=== PATIENT | male | born 1955 | race Hispanic/Latino ===

== ENCOUNTER 2018-08-12 07:10 | Day surgery (SDC) | payer OTHER ==
--- NOTE | 2018-08-12 11:28 | OP ---
DATE OF PROCEDURE: 08/12/2018 PROCEDURE: Colonoscopy with polypectomy. PREPROCEDURE DIAGNOSIS: Screening colonoscopy. ANESTHESIA: TIVA. POSTPROCEDURE DIAGNOSES: 1. A 3-to 5-mm sessile polyps in the transverse and descending colon, all submitted in one jar. 2. Diverticulosis coli, mild. RECOMMENDATIONS: Await histopathology. Repeat colonoscopy in 3 to 5 years depending on pathology results. PROCEDURE IN DETAIL: The patient was informed of the risks, benefits, and possible complications of endoscopy including perforation, reaction to medication, and aspiration, informed consent was obtained. Ret[employer] Press Operator was then performing the family members at the bedside. The patient was sedated in a comfortable fashion. Rectal exam was performed, which was normal. The endoscope was then advanced through the anal canal through the colon to the cecum, which was identified by the ileocecal valve and appendiceal orifice. The prep was good. We did use some irrigation to clear a little bit of debris in the left colon. Three polyps were found, two in the transverse, one in the descending, these were all removed by snare polypectomy in mixture of hot and cold and submitted to Pathology. There was diverticulosis coli in the sigmoid colon and retroflexion was normal. The scope was removed. The patient tolerated the procedure well. There were no complications. Job ID: [id number]
[2018-08-12] MEDS ORDERED: PROPOFOL 200 MG/20 ML VIAL ONE (13:56)
== END 2018-08-12 12:00 | disposition home or self-care (01) ==
LOC: SDC 07:10
PROVIDERS: ATTEND Internal Medicine Gastroenterology
PROC: 0DBM8ZX Excision of Descending Colon, Via Natural or Artificial Opening Endoscopic, Diagnostic (ICD-10-PCS; principal; 2018-08-12)
PROC: 0DBL8ZX Excision of Transverse Colon, Via Natural or Artificial Opening Endoscopic, Diagnostic (ICD-10-PCS; principal; 2018-08-12)
DX: Z12.11 Encounter for screening for malignant neoplasm of colon (principal); D12.3 Benign neoplasm of transverse colon; K63.5 Polyp of colon; K57.30 Diverticulosis of large intestine without perforation or abscess without bleeding; Z87.891 Personal history of nicotine dependence
CPT/HCPCS: 88305; J2704

== ENCOUNTER 2019-05-07 19:16 | Emergency (ER) | payer OTHER ==
[~2019-05-07 19:16] MED LIST: Iopamidol-370 76% 500 ML 1 ML ONE
[2019-05-07] MEDS ORDERED: Ondansetron PF 4 MG/2 ML Vial ONE (20:46)
[2019-05-07] MEDS ORDERED: Morphine 4 MG/ML VIAL ONE (20:46)
[2019-05-07] MEDS ORDERED: Dexamethasone 10 MG/ML VIAL ONE (20:46)
[2019-05-07] MEDS ORDERED: Clindamycin/D5W 900 mg/50 ml Premix Bag ONE (20:46)
[2019-05-07 20:55] LABS: #Lymphocytes 1.2 thou/uL (1.20-3.40); #Monocytes 0.9 thou/uL (0.11-0.59); #Neutrophils 8.4 thou/uL (1.40-6.50); %Basophils 0.3 % (0.0-1.0); %Eosinophils 0.3 % (0.0-10.0); %Lymphocytes 11.1 % (21.0-51.0); %Monocytes 8.8 % (0.0-10.0); %Neutrophils 79.5 % (42.0-75.0); Hemoglobin 14.4 g/dL (14.0-18.0); Mean Corpuscular HGB CONC 33.4 g/dL (32.0-36.0); Mean Corpuscular Hemoglobin 30.7 pg (27.0-31.0); Mean Platelet Volume 7.1 fL (7.4-10.4); Platelet Count 191 thou/uL (130-400); RBC Distribution Width 12.3 % (11.5-14.5); White Blood Cell (WBC) Count 10.6 thou/uL (4.8-10.8)
[2019-05-07 21:19] LABS: ALT (SGPT) 17 U/L (8-55); AST (SGOT) 17 U/L (5-34); Albumin 4.3 g/dL (3.4-4.8); Alkaline Phosphatase 76 U/L (40-110); Anion Gap 12 mmol/L (10-20); BUN (Urea Nitrogen) 12 mg/dL (8.4-25.7); Bilirubin, Total 0.5 mg/dL (0.2-1.2); Calc. Creatinine Clearance 0 mL/min (70-130); Calcium 9.5 mg/dL (7.8-10.44); Carbon Dioxide 29 mmol/L (23-31); Chloride 102 mmol/L (98-107); Estimated GFR-MDRD Greater than 90; Globulin 3.4 g/dL (2.4-3.5); Glucose 117 mg/dL (80-115); Protein, Total 7.7 g/dL (5.8-8.1); Sodium 139 mmol/L (136-145)
--- NOTE | 2019-05-07 21:55 | CT ---
CT Neck Soft Tissue W Con History: Pain to jaw Comparison: None. Findings: Globes are intact. Multiple cavities with erosion of the alveolar bone along the left junior bular first molar. The palatine tonsils are enlarged for age as well as nasopharyngeal tonsils. No peripherally enhancing abscess. Low-grade inflammation along the medial margin of the left second mandibular gland. Mild distention o f the submandibular gland duct. The lung apices are clear. Cervical spine alignment is normal. Impression: Mild left-sided mandibular sialoadenitis with ductal distention. No calcific stone is karen reciated.
== END 2019-05-07 23:32 | disposition home or self-care (01) ==
LOC: ERS 19:16
DX: K11.20 Sialoadenitis, unspecified (principal); Z79.891 Long term (current) use of opiate analgesic
CPT/HCPCS: 70491; 80053; 85025; 96365; 96375; J1100; J2270; J2405; J3490; Q9967

== ENCOUNTER 2020-11-16 16:34 | Outpatient (CLI) | payer OTHER | END 2020-11-16 16:35 | disposition home or self-care (01) | LOC: BICRAD 16:34 | PROVIDERS: ATTEND Family Medicine | DX: M25.532 Pain in left wrist (principal); S62.102A Fracture of unspecified carpal bone, left wrist, initial encounter for closed fracture ==

== ENCOUNTER 2022-05-27 14:50 | Outpatient (CLI) | payer OTHER | END 2022-05-27 14:51 | disposition home or self-care (01) | LOC: BICRAD 14:50 | PROVIDERS: ATTEND Family Medicine | DX: R05.3 Chronic cough (principal) | CPT/HCPCS: 71046 ==

== ENCOUNTER 2023-07-31 13:50 | Emergency (ER) | payer MEDICARE, BC ==
[2023-07-31] MEDS ORDERED: Ketorolac Tromethamine 30 MG (1 mL) VIAL ONE (14:40)
[2023-07-31] MEDS ORDERED: Methocarbamol 500 MG TAB ONE (14:41)
[2023-07-31] MEDS ORDERED: Lidocaine 4% Patch TD SCH (14:45)
== END 2023-07-31 16:08 | disposition home or self-care (01) ==
LOC: ERS 13:50
DX: M54.2 Cervicalgia (principal); M19.90 Unspecified osteoarthritis, unspecified site; W22.8XXA Striking against or struck by other objects, initial encounter; Z75.8 Other problems related to medical facilities and other health care; Z55.6 Problems related to health literacy
CPT/HCPCS: 72040; 96372; J1885

== ENCOUNTER 2024-07-05 10:25 | Inpatient (IN) | payer BC, MEDICARE ==
[2024-07-05] MEDS ORDERED: HYDROcodone/Acetaminophen 5/325 mg Tablet ONE (11:25)
[2024-07-05] MEDS ORDERED: hydrALAZINE 20 MG/ML VIAL SLOW IVP PRN (12:24)
[2024-07-05] MEDS ORDERED: Dextrose 50% Abboject 50 ML SYRINGE SLOW IVP PRN (12:24)
[2024-07-05] MEDS ORDERED: TETANUS, DIPHTHERIA TOX,ADULT (TDVAX) 0.5 ML VIAL IM ONE (12:24)
[2024-07-05] MEDS ORDERED: Dextrose 5% in Water 1,000 ML IV PRN (12:24)
[2024-07-05] MEDS ORDERED: Ondansetron ODT 4 MG TAB PO PRN (12:24)
[2024-07-05] MEDS ORDERED: Glucagon 1 MG/ML KIT IM PRN (12:24)
[2024-07-05] MEDS ORDERED: Morphine 4 MG/ML VIAL ONE ×2 (12:32→13:13)
[2024-07-05] MEDS ORDERED: Ondansetron PF 4 MG/2 ML Vial ONE (12:32)
[2024-07-05 13:11] LABS: #Basophils 0.05 10x3/uL (0.0-0.2); %Basophils 0.5 % (0.0-1.0); %Lymphocytes 23.2 % (21.0-51.0); %Monocytes 7.2 % (0.0-10.0); %Neutrophils 67.8 % (42.0-75.0); Hematocrit 40.9 % (42.0-52.0); Hemoglobin 13.9 g/dL (14.0-18.0); Mean Corpuscular Hemoglobin 30.9 pg (27.0-31.0); Mean Corpuscular Volume 90.9 fL (78.0-98.0); Mean Platelet Volume 9.3 fL (7.4-10.4); Platelet Count 226 10x3/uL (130-400); RBC Distribution Width 13.1 % (11.5-14.5)
[2024-07-05 13:30] LABS: ALT (SGPT) 21 U/L (Less than 45); AST (SGOT) 23 U/L (11-34); Albumin 3.8 g/dL (3.1-4.5); Alkaline Phosphatase 76 U/L (40-110); Anion Gap 13 mmol/L (10-20); BUN (Urea Nitrogen) 16 mg/dL (8.4-25.7); Bilirubin, Total 0.2 mg/dL (0.3-1.2); Calc. Creatinine Clearance 0 mL/min (70-130); Calcium 9.2 mg/dL (7.8-10.44); Carbon Dioxide 25 mmol/L (23-31); Chloride 105 mmol/L (98-107); Estimated GFR 97; Globulin 3.9 g/dL (2.4-3.5); Glucose 101 mg/dL (80-115); Potassium 4.2 mmol/L (3.5-5.1); Protein, Total 7.7 g/dL (5.8-8.1); Sodium 139 mmol/L (136-145)
[2024-07-05 17:13] VITALS: BMI 31.4
[2024-07-05] MEDS: HYDROcodone/Acetaminophen 5/325 mg Tablet PO PRN (19:35)
[2024-07-05] MEDS: Methocarbamol 500 MG TAB PO PRN (19:37)
[2024-07-05] MEDS: traMADol HCl 50 MG TAB PO PRN (21:51)
[2024-07-05] MEDS: Lactated Ringer's 1,000 ML IV SCH (21:52)
[2024-07-06 05:28] LABS: #Basophils 0.04 10x3/uL (0.0-0.2); %Basophils 0.5 % (0.0-1.0); %Eosinophils 1.2 % (0.0-10.0); %Lymphocytes 27.6 % (21.0-51.0); %Monocytes 10.7 % (0.0-10.0); %Neutrophils 59.6 % (42.0-75.0); Hematocrit 39.1 % (42.0-52.0); Hemoglobin 12.6 g/dL (14.0-18.0); Mean Corpuscular HGB CONC 32.2 g/dL (32.0-36.0); Mean Corpuscular Hemoglobin 30.7 pg (27.0-31.0); Mean Corpuscular Volume 95.1 fL (78.0-98.0); Mean Platelet Volume 9.3 fL (7.4-10.4); Platelet Count 199 10x3/uL (130-400); RBC Distribution Width 13.2 % (11.5-14.5); Red Blood Cell (RBC) Count 4.11 mill/uL (4.70-6.10)
[2024-07-06 05:45] LABS: Anion Gap 10 mmol/L (10-20); BUN (Urea Nitrogen) 14 mg/dL (8.4-25.7); Calc. Creatinine Clearance 128 mL/min (70-130); Calcium 8.8 mg/dL (7.8-10.44); Carbon Dioxide 31 mmol/L (23-31); Chloride 104 mmol/L (98-107); Estimated GFR 95; Glucose 102 mg/dL (80-115); Potassium 4.6 mmol/L (3.5-5.1); Sodium 140 mmol/L (136-145)
[2024-07-06] MEDS: Acetaminophen 325 MG TAB PO PRN (06:29)
[2024-07-06] MEDS: Ondansetron PF 4 MG/2 ML Vial IVP PRN (08:53)
[2024-07-06] MEDS ORDERED: Midazolam HCl 2 mg/2 ml Vial ONE ×2 (10:45→10:56)
[2024-07-06] MEDS ORDERED: fentaNYL 50 mcg/mL 1 mL Vial ONE (10:45)
[2024-07-06] MEDS ORDERED: PROPOFOL 20 ML ONE (10:56)
[2024-07-06] MEDS ORDERED: Lidocaine 1% PF 5 ML VIAL ONE (10:56)
[2024-07-06] MEDS ORDERED: fentaNYL PF 100 MCG/2 ML SYRINGE ONE (10:56)
[2024-07-06] MEDS ORDERED: CEFAZOLIN 2 GM VIAL ONE (10:58)
[2024-07-06] MEDS ORDERED: Ropivacaine 0.5% HCl/PF (150 MG/30 ML VIAL) ONE (11:06)
[2024-07-06] MEDS ORDERED: PHENYLEPHRINE-NS 100 MCG/ML 10 ML SYRINGE ONE (11:52)
[2024-07-06] MEDS ORDERED: Dexamethasone 20 MG/5 ML VIAL ONE (12:24)
[2024-07-06] MEDS ORDERED: Ondansetron PF 4 MG/2 ML Vial ONE (12:24)
[2024-07-06] MEDS ORDERED: SUCCINYLCHOLINE/SOD CL,ISO/PF 200 MG/10 ML SYRINGE FS ONE (12:25)
[2024-07-06] MEDS ORDERED: Rocuronium Bromide 10 MG/ML (10ML VIAL) ONE (12:25)
[2024-07-06] MEDS ORDERED: CEFAZOLIN 2 GM in Sodium Chloride 0.9% 100 ML IVPB SCH (12:45)
[2024-07-06] MEDS ORDERED: NEOSTIGMINE 3 MG/3 ML SYRINGE ONE (13:09)
[2024-07-06] MEDS ORDERED: Glycopyrrolate 0.2 MG/ML 5 ML SYRINGE ONE (13:09)
[2024-07-06] MEDS ORDERED: SUGAMMADEX SODIUM 200 MG/2 ML VIAL ONE (13:26)
[2024-07-06] MEDS ORDERED: Ketorolac Tromethamine 30 MG (1 mL) VIAL ONE (13:38)
[2024-07-06] MEDS: CEFAZOLIN 2 GM in Sodium Chloride 0.9% 100 ML IVPB SCH (20:50)
[2024-07-07 07:28] LABS: #Basophils Less than 0.03 10x3/uL (0.0-0.2); %Basophils 0.2 % (0.0-1.0); %Eosinophils 0.5 % (0.0-10.0); %Lymphocytes 16.9 % (21.0-51.0); %Monocytes 10.7 % (0.0-10.0); %Neutrophils 71.4 % (42.0-75.0); Hematocrit 35.9 % (42.0-52.0); Hemoglobin 11.8 g/dL (14.0-18.0); Mean Corpuscular HGB CONC 32.9 g/dL (32.0-36.0); Mean Corpuscular Hemoglobin 30.8 pg (27.0-31.0); Mean Corpuscular Volume 93.7 fL (78.0-98.0); Mean Platelet Volume 9.1 fL (7.4-10.4); Platelet Count 189 10x3/uL (130-400); Red Blood Cell (RBC) Count 3.83 mill/uL (4.70-6.10)
[2024-07-07] MEDS: Enoxaparin 40 MG (0.4 mL) SYRINGE SC SCH (09:10)
[2024-07-08 16:24] VITALS: BP 133/71; TEMP 98.2
== END 2024-07-08 16:43 | disposition home or self-care (01) | DRG 494 ==
LOC: ERS 10:25 → SURG B 14:46
PROVIDERS: ADMIT Surgery; ATTEND Surgery
PROC: 0QSG06Z Reposition Right Tibia with Intramedullary Internal Fixation Device, Open Approach (ICD-10-PCS; principal; 2024-07-06)
PROC: 0QSJ06Z Reposition Right Fibula with Intramedullary Internal Fixation Device, Open Approach (ICD-10-PCS; 2024-07-06)
DX: S82.201A Unspecified fracture of shaft of right tibia, initial encounter for closed fracture (principal); S82.831A Other fracture of upper and lower end of right fibula, initial encounter for closed fracture; W01.0XXA Fall on same level from slipping, tripping and stumbling without subsequent striking against object, initial encounter
CPT/HCPCS: 29505; 36415; 70450; 80048; 80053; 85025; 96374; 96375; C1713; C1769; C1874; G0390; J1100; J1650; J1885; J2250; J2270; J2405; J2704; J2795; J3010; J7120